=== PATIENT | male | born 1985 ===

== ENCOUNTER 2016-10-23 13:05 | Emergency (ER) | payer OTHER ==
[2016-10-23 13:41] VITALS: BP 135/77
--- NOTE | 2016-10-23 13:53 | UC ---
Throat Pain/Nasal Man HPI - HPI Summary HPI Summary: 31 year old female with complaints of sore throat, headache, nasal congestion for 3 - 4 days. He took some mucinex last night with moderate relief. Denies fever, cough, chest pain, abdominal pain or vomiting - History of Current Complaint Chief Complaint: UCRespiratory Stated Complaint: SORE THROAT Time Seen by Provider: 10/23/16 13:34 Hx Obtained From: Patient Onset/Duration: Gradual Onset, Lasting Days - 3-4, Still Present Severity: Moderate Pain Scale Used: 0-10 Numeric - 2 Associated Signs & Symptoms: Positive: Dysphagia. Negative: FB Sensation, Drooling, Wheezing, Hoarseness, Sinus Discomfort, Nasal Discharge, Fever, Vomiting Related History: Seasonal Allergies - Epiglottits Risk Factors Epiglottis Risk Factors: Negative - Allergies/Home Medications Allergies/Adverse Reactions: Allergies Allergy/AdvReac Type Severity Reaction Status Date / Time No Known Allergies Allergy Verified 12/30/15 14:54 PMH/Surg Hx/FS Hx/Imm Hx Previously Healthy: Yes Endocrine History Of: Denies: Diabetes Cardiovascular History Of: Reports: Hypertension - WELL CONTROLLED Respiratory History Of: Reports: Asthma Psychological History Of: Reports: Anxiety - WELL CONTROLLED, Depression - WELL CONTROLLED - Surgical History Surgical History: Yes Surgery Procedure, Year, and Place: RIGHT SHOULDER SURGERY 2005 [facility] – [place] - Family History Known Family History: Positive: Hypertension - mother Negative: Diabetes - Social History Occupation: Employed Full-time Lives: With Family Alcohol Use: Rare Substance Use Type: None Smoking Status (MU): Never Smoked Tobacco Have You Smoked in the Last Year: No Review of Systems Constitutional: Negative Skin: Negative Eyes: Negative ENT: Sore Throat, Nasal Discharge Respiratory: Negative Cardiovascular: Negative Gastrointestinal: Negative Genitourinary: Negative Motor: Negative Neurovascular: Negative Musculoskeletal: Negative Neurological: Headache Psychological: Negative All Other Systems Reviewed And Are Negative: Yes Physical Exam Triage Information Reviewed: Yes Appearance: No Pain Distress, Well-Nourished, Ill-Appearing - mildly Vital Signs: Initial Vital Signs Temp 97.9 F 10/23/16 13:36 Pulse 80 10/23/16 13:36 Resp 20 10/23/16 13:36 BP 135/77 10/23/16 13:36 Pulse Ox 97 10/23/16 13:36 Vital Signs Reviewed: Yes Eyes: Positive: Conjunctiva Clear, Discharge ENT: Positive: Hearing grossly normal, Pharyngeal erythema, Nasal drainage - clear, Tonsillar swelling - 1+ bilaterally. Negative: Nasal congestion Neck: Positive: Supple, Nontender, Enlarged Nodes @ - bilateral AC Respiratory: Positive: Lungs clear, Normal breath sounds Cardiovascular: Positive: RRR, No Murmur Musculoskeletal: Positive: Strength Intact, ROM Intact Neurological: Positive: Alert, Muscle Tone Normal Psychological: Positive: Age Appropriate Behavior - pleasant and cooperative Skin: Negative: rashes, breakdown Throat Pain/Nasal Course/Dx - Course Course Of Treatment: Rapid Strep - Negative - Differential Dx/Diagnosis Differential Diagnosis/HQI/PQRI: Pharyngitis, URI Provider Diagnoses: Upper Respiratory Infection Discharge - Discharge Plan Condition: Stable Disposition: HOME Patient Education Materials: Upper Respiratory Infection (ED)
== END 2016-10-23 14:27 | disposition home or self-care (01) ==
LOC: UCEAST 13:05
DX: J06.9 Acute upper respiratory infection, unspecified (principal)
CPT/HCPCS: 87651; 99211; G0463

== ENCOUNTER 2016-12-01 12:31 | Emergency (ER) | payer OTHER ==
[2016-12-01 12:47] VITALS: BP 122/72
--- NOTE | 2016-12-01 13:03 | UC ---
UC General HPI - History of Current Complaint Chief Complaint: UCRespiratory Stated Complaint: ST,HEADACHE Time Seen by Provider: 12/01/16 12:52 Hx Obtained From: Patient Onset/Duration: Gradual Onset Onset Severity: Mild Current Severity: Mild - Allergy/Home Medications Allergies/Adverse Reactions: Allergies Allergy/AdvReac Type Severity Reaction Status Date / Time No Known Allergies Allergy Verified 12/01/16 12:48 PMH/Surg Hx/FS Hx/Imm Hx Previously Healthy: Yes Endocrine History Of: Denies: Diabetes Cardiovascular History Of: Reports: Hypertension - WELL CONTROLLED Denies: Cardiac Disorders Respiratory History Of: Reports: Asthma GI/ History Of: Denies: Gastroesophageal Reflux, Ulcer Neurological History Of: Denies: Seizures, Migraine Psychological History Of: Reports: Anxiety - WELL CONTROLLED, Depression - WELL CONTROLLED - Surgical History Surgical History: Yes Surgery Procedure, Year, and Place: [place] SHOULD[place] [facility] [place] - Family History Known Family History: Positive: Hypertension - mother Negative: Diabetes - Social History Occupation: Employed Full-time Lives: With Family Alcohol Use: Rare Substance Use Type: None Smoking Status (MU): Never Smoked Tobacco Have You Smoked in the Last Year: No Review of Systems Constitutional: Fatigue Skin: Negative Eyes: Negative ENT: Sore Throat, Ear Ache - Left ear "popping" Respiratory: Cough Cardiovascular: Negative Gastrointestinal: Negative Genitourinary: Negative Motor: Negative Neurovascular: Negative Musculoskeletal: Negative Neurological: Negative Psychological: Negative All Other Systems Reviewed And Are Negative: Yes Physical Exam Triage Information Reviewed: Yes Appearance: Well-Appearing, No Pain Distress Vital Signs: Initial Vital Signs Temp 99.0 F 12/01/16 12:43 Pulse 74 12/01/16 12:43 Resp 20 12/01/16 12:43 BP 122/72 12/01/16 12:43 Pulse Ox 98 12/01/16 12:43 Vital Signs Reviewed: Yes Eye Exam: Normal Eyes: Positive: Conjunctiva Clear ENT Exam: Normal Dental Exam: Normal Dental: Negative: Cervical Lymphadenopathy Neck exam: Normal Neck: Positive: Supple, Nontender, No Lymphadenopathy Respiratory Exam: Normal Respiratory: Positive: Chest non-tender, Lungs clear, Normal breath sounds, No respiratory distress, No accessory muscle use Cardiovascular Exam: Normal Cardiovascular: Positive: RRR, No Murmur, Pulses Normal Abdominal Exam: Normal Abdomen Description: Positive: Nontender, No Organomegaly, Soft Bowel Sounds: Positive: Present Musculoskeletal Exam: Normal Musculoskeletal: Positive: Strength Intact, ROM Intact Neurological Exam: Normal Neurological: Positive: Alert, Muscle Tone Normal Psychological Exam: Normal Skin Exam: Normal Course/Dx - Differential Dx - Multi-Symptom Provider Diagnoses: Upper respiratory Infection Discharge - Discharge Plan Condition: Stable Disposition: HOME Patient Education Materials: Upper Respiratory Infection (ED) Referrals: Betty Kennedy MD [Primary Care Provider] - If Needed Additional Instructions: As discussed, follow up if symptoms worsen.
== END 2016-12-01 13:43 | disposition home or self-care (01) ==
LOC: UCEAST 12:31
DX: J06.9 Acute upper respiratory infection, unspecified (principal)
CPT/HCPCS: 87651; 99211; G0463

== ENCOUNTER 2019-06-17 13:36 | Emergency (ER) | payer OTHER ==
[2019-06-17 14:10] LABS: ABS Basophils 0.1 10^3/ul (0-0.2); ABS Eosinophils 0.1 10^3/ul (0-0.6); ABS Lymphocytes 2.2 10^3/ul (1.0-4.8); ABS Monocytes 0.7 10^3/ul (0-0.8); ABS Neutrophils 6.7 10^3/ul (1.5-7.7); Eosinophil % 0.6 %; Hematocrit 45 % (42-52); Hemoglobin 15.6 g/dL (14.0-18.0); Lymphocyte % 22.4 %; Mean Corpuscular HGB Conc 35 g/dL (31-36); Mean Corpuscular Hemoglobin 29 pg (27-31); Mean Corpuscular Volume 84 fL (80-94); Mean Platelet Volume 7.4 fL (7.4-10.4); Platelet Count 311 10^3/uL (150-450); Red Blood Count 5.32 10^6 /uL (4.18-5.48); Red Cell Distribution Width 14 % (10-15); White Blood Count 9.8 10^3/uL (3.5-10.8)
--- NOTE | 2019-06-17 14:39 | ED ---
HPI Chest Pain - HPI Summary HPI Summary: 34 year old M brought [place] by [place] [facility] [place] [facility] accompanied by complains of mid sternal and right-sided chest pain described as an ache radiating to his right shoulder and right-sided back with associated light headedness since 12:30 today after biking up a hill, which lasted 20 minutes, and has since resolved. Patient denies shortness of breath. Patient states that as he was sitting and resting in the [facility] waiting room, his chest pain resolved. Patient states that his O2 sat was low at [facility] so he was given O2. The patient rates the pain 0/10 currently in severity. Symptoms aggravated by rest. Symptoms alleviated by nothing. Patient states he has hx hypertension for which he takes amlodipine, asthma, depression, varicose veins in bilateral legs, and sleep apnea. Patient states his maternal grandfather from an [place] in his 50s. Patient states he does not smoke. - History of Current Complaint Chief Complaint: EDChestPainROMI Time Seen by Provider: 06/17/19 13:49 Hx Obtained From: Patient Onset/Duration: Started Hours Ago - 2, Resolved Timing: Lasting Minutes - 20 Initial Severity: Mild Pain Intensity: 0 Pain Scale Used: 0-10 Numeric Chest Pain Radiates: Yes Chest Pain Radiates To:: Back - right, Shoulder - right Character: Dull/Aching Aggravating Factor(s): Rest Alleviating Factor(s): Nothing Associated Signs and Symptoms: Positive: Lightheadedness. Negative: Shortness of Breath - Allergy/Home Medications Allergies/Adverse Reactions: Allergies Allergy/AdvReac Type Severity Reaction Status Date / Time No Known Allergies Allergy Verified 12/01/16 12:48 Home Medications: Home Medications ALPRAZolam TAB* [Xanax TAB*] 0.5 mg PO TID PRN 06/17/19 [History Confirmed 06/17] Albuterol inh POWDER (NF) [Proair Respiclick] 2 puff INH Q4HR PRN 06/17/19 [ History Confirmed 06/17/19] Montelukast Sodium TAB* [Singulair TAB*] 10 mg PO DAILY 06/17/19 [History Confirmed 06/17/19] lamoTRIgine TAB(*) [LaMICtal TAB(*)] 200 mg PO DAILY 06/17/19 [History Confirmed 06/17/19] PMH/Surg Hx/FS Hx/Imm Hx Endocrine/Hematology History: Denies: Hx Diabetes Cardiovascular History: Reports: Hx Hypertension - WELL CONTROLLED Respiratory History: Reports: Hx Asthma, Hx Sleep Apnea GI History: Denies: Hx Ulcer Sensory History: Denies: Hx Contacts or Glasses, Hx Hearing Aid Opthamlomology History: Denies: Hx Contacts or Glasses Neurological History: Denies: Hx Migraine, Hx Seizures Psychiatric History: Reports: Hx Anxiety - WELL CONTROLLED, Hx Depression - WELL CONTROLLED - Surgical History Surgery Procedure, Year, and Place: [place] [facility] [place] Anesthesia Reactions: No Infectious Disease History: No Infectious Disease History: Denies: Traveled Outside the [place] in Last 30 Days - Family History Known Family History: Positive: Cardiac Disease - maternal grandfather had [place] in 50s, Hypertension - mother Negative: Diabetes - Social History Alcohol Use: Rare Hx Substance Use: No Substance Use Type: Reports: None Hx Tobacco Use: No Smoking Status (MU): Never Smoked Tobacco Have You Smoked in the Last Year: No Review of Systems Positive: Chest Pain Negative: Shortness Of Breath Neurological: Other - light headedness All Other Systems Reviewed And Are Negative: Yes Physical Exam - Summary Physical Exam Summary: Appearance: The patient is well-nourished in no acute distress and in no acute pain. Skin: The skin is warm and dry, and skin color reflects adequate perfusion. HEENT: The head is normocephalic and atraumatic. The pupils are equal and reactive. The conjunctivae are clear and without drainage. Nares are patent and without drainage. Mouth reveals moist mucous membranes, and the throat is without erythema and exudate. The external ears are intact. The ear canals are patent and without drainage. The tympanic membranes are intact. Neck: The neck is supple with full range of motion and non-tender. There are no carotid bruits. There is no neck vein distension. Respiratory: Chest is non-tender. Lungs are clear to auscultation and breath sounds are symmetrical and equal. Cardiovascular: Heart is regular rate and rhythm. There is no murmur or rub auscultated. There is no peripheral edema and pulses are symmetrical and equal. Abdomen: The abdomen is soft and non-tender. There are normal bowel sounds heard in all four quadrants and there is no organomegaly palpated. Musculoskeletal: There is no back tenderness noted. Extremities are non-tender with full range of motion. There is good capillary refill. There is no peripheral edema or calf tenderness elicited. Neurological: Patient is alert and oriented to person, place and time. The patient has symmetrical motor strength in all four extremities. Cranial nerves are grossly intact. Deep tendon reflexes are symmetrical and equal in all four extremities. Psychiatric: The patient has an appropriate affect and does not exhibit any anxiety or depression. Triage Information Reviewed: Yes Vital Signs On Initial Exam: Initial Vitals Temp Pulse Resp BP Pulse Ox 98 F 92 14 122/78 96 06/17/19 13:42 06/17/19 13:42 06/17/19 13:42 06/17/19 13:42 06/17/19 13:42 Vital Signs Reviewed: Yes Diagnostics - Vital Signs Vital Signs Temp Pulse Resp BP Pulse Ox 06/17/19 13:42 98 F 92 14 122/78 96 - Laboratory Lab Results: Lab Results 06/17/19 Range/Units 14:00 WBC 9.8 (3.5-10.8) 10^3/uL RBC 5.32 (4.18-5.48) 10^6 /uL Hgb 15.6 (14.0-18.0) g/dL Hct 45 (42-52) % MCV 84 (80-94) fL MCH 29 (27-31) pg MCHC 35 (31-36) g/dL RDW 14 (10-15) % Plt Count 311 (150-450) 10^3/uL MPV 7.4 (7.4-10.4) fL Neut % (Auto) 68.8 % Lymph % (Auto) 22.4 % [place] % (Auto) 7.5 % Eos % (Auto) 0.6 % Baso % (Auto) 0.7 % Absolute Neuts (auto) 6.7 (1.5-7.7) 10^3/ul Absolute Lymphs (auto) 2.2 (1.0-4.8) 10^3/ul Absolute Monos (auto) 0.7 (0-0.8) 10^3/ul Absolute Eos (auto) 0.1 (0-0.6) 10^3/ul Absolute Basos (auto) 0.1 (0-0.2) 10^3/ul Absolute Nucleated RBC 0.0 10^3/ul Nucleated RBC % 0.0 Result Diagrams: 06/17/19 14:00 06/17/19 14:03 Lab Statement: Any lab studies that have been ordered have been reviewed, and results considered in the medical decision making process. - Radiology CXR Radiology Interpretation Completed By: Radiologist Summary of Radiographic Findings: NO EVIDENCE FOR ACTIVE CARDIOPULMONARY DISEASE. ED physician has reviewed this report. - EKG 1405 Cardiac Rate: NL EKG Rhythm: Sinus Rhythm Summary of EKG Findings: Normal sinus rhythm, normal ST, no ectopy, no STEMI Re-Evaluation - Re-Evaluation First Eval Re-Evaluation Time: 17:18 Comment: second troponin is 0.00. patient updated on imaging and blood test results. discussed dispo plan. patient is agreeable to discharge Chest Pain Course/Dx - Course Course Of Treatment: Mr. Hooper had some chest pain while riding his bicycle up a hill today. He stopped and went to [facility]. The chest pain began to resolve while he was resting and lasted a total of about 20 minutes. He did feel somewhat short of breath but admits that he is deconditioned. His BMI is 45. He was nontoxic in appearance is stable vitals. EKG chest x-ray and labs including a delayed troponin were all negative. I recommended follow- up with his PCP possibly for a stress test prior to doing any more exercise. - Diagnoses Provider Diagnoses: Chest pain Discharge ED - Sign-Out/Discharge Documenting (check all that apply): Patient Departure - Discharge Patient Received Moderate/Deep Sedation with Procedure: No - Discharge Plan Condition: Stable Disposition: HOME Patient Education Materials: Chest Pain (ED) Referrals: Mary Bonds NP [Nurse Practitioner] - 2 Days Additional Instructions: Follow up with your primary care provider in the next 2-3 days. Return to the Emergency Department for new or worsening symptoms. - Billing Disposition and Condition Condition: STABLE Disposition: Home - Attestation Statements Document Initiated by Scribe: Yes Documenting Scribe: Brooke Donnelly Provider For Whom Giselleibe is Documenting (Include Credential): Robby Magallanes MD Scribe Attestation: Brooke Lowery, scribed for Robby Magallanes MD on 06/17/19 at 1917. Scribe Documentation Reviewed: Yes Provider Attestation: The documentation as recorded by the scribe, Brooke Donnelly accurately reflects the service I personally performed and the decisions made by me, Robby Magallanes MD Status of José Miguel Document: Viewed
[2019-06-17 14:52] LABS: Albumin 4.6 g/dL (3.2-5.2); Albumin/Globulin Ratio 1.9 (1-3); Calcium 9.6 mg/dL (8.6-10.3); EGFR African American 85.4 (>60); EGFR Non-African American 70.5 (>60); Globulin 2.4 g/dL (2-4); Total Bilirubin 0.4 mg/dL (0.2-1.0)
[2019-06-17 17:44] VITALS: BP 128/84
== END 2019-06-17 17:25 | disposition home or self-care (01) ==
LOC: ED 13:36
DX: R07.9 Chest pain, unspecified (principal); I10 Essential (primary) hypertension; J45.909 Unspecified asthma, uncomplicated; F32.9 Major depressive disorder, single episode, unspecified; F41.9 Anxiety disorder, unspecified; Z79.899 Other long term (current) drug therapy
CPT/HCPCS: 36415; 71045; 80053; 83605; 84484; 85025; 93005; 99282